=== PATIENT | male | born 1950 | race Caucasian/White ===

== ENCOUNTER → 2019-08-07 | Outpatient (CLI) | payer MEDICARE, BC ==
[~2019-08-07] MED LIST: ACYC400 PO; ASPI81CH PO; ATOR80 PO; FOSI10 PO; LOSA50 PO; NEBI10 PO; NITR.4SL SL; Norvasc5 MG PO; PANT40; SERT25 PO; TICA90TA PO
[2019-08-07 16:47] LABS: Influenza A Negative (NEGATIVE); Influenza B Negative (NEGATIVE)
== END ==
LOC: LAB SHORT 15:48 → LAB 15:48
PROVIDERS: Nurse Practitioner Family
DX: R05 Cough (principal)
CPT/HCPCS: 87804

== ENCOUNTER 2019-09-16 07:52 | Emergency (ER) | payer MEDICARE, BC, OTHER ==
[~2019-09-16] VITALS: Ht 172.7 cm; Wt 79.4 kg
[2019-09-16] MEDS ORDERED: Bystolic2.5 MG PO (09:44)
[2019-09-16] MEDS ORDERED: Flovent 110 MCG12 GM INH (09:44)
[2019-09-16] MEDS ORDERED: MONTELUKAST SOD10 M2 PO (09:45)
[2019-09-16] MEDS ORDERED: OMEP20ER PO (09:45)
[2019-09-16] MEDS ORDERED: TAMSULOSIN HCL0.4 M1 PO (09:46)
[2019-09-16] MEDS ORDERED: Ventolin/Prove6.7 GM (09:47)
[2019-09-16] MEDS ORDERED: VIRTUSSIN AC L118 ML UD (09:51)
[2019-09-16] MEDS ORDERED: PRED20 PO (09:51)
[2019-09-16] MEDS ORDERED: Tessalon200 MG (09:51)
[2019-09-16 09:56] LABS: BASOPHILS ABSOLUTE AUTO 0.03 K/mm3 (0.00-0.23); BASOPHILS PERCENT AUTO 1 % (0-2); EOSINOPHILS ABSOLUTE AUTO 0.09 K/mm3 (0.00-0.68); EOSINOPHILS PERCENT AUTO 2 % (0-6); Hematocrit 41.3 % (37.0-53.0); Hemoglobin 13.5 g/dL (13.5-17.5); IMMATURE GRAN ABSOLUTE AUTO 0.02 K/mm3 (0.00-0.10); IMMATURE GRAN PERCENT AUTO 0 % (0-1); LYMPHOCYTES ABSOLUTE AUTO 0.85 K/mm3 (0.84-5.20); LYMPHOCYTES PERCENT AUTO 15 % (21-46); MONOCYTES ABSOLUTE AUTO 0.44 K/mm3 (0.16-1.47); MONOCYTES PERCENT AUTO 8 % (4-13); Mean Corpuscular HGB 31.4 pg (26.0-34.0); Mean Corpuscular HGB Conc 32.7 g/dL (31.5-36.5); Mean Corpuscular Volume 96 fL (80-100); NEUTROPHILS PERCENT AUTO 75 % (41-73); Platelet Count 143 K/mm3 (150-400); RDW Coefficient Variation 13.3 % (11.7-14.2); RDW Standard Deviation 47.2 fL (35.1-46.3); White Blood Cell Count 5.73 K/mm3 (4.00-11.30)
[2019-09-16 10:16] LABS: Alanine Aminotransfer (ALT/SGP 29 U/L (12-78); Albumin, Blood 3.7 g/dL (3.4-5.0); Albumin/Globulin Ratio 1.5 (0.8-1.8); Alk Phos 68 U/L (50-136); Anion Gap 2 mmol/L (6-16); Aspartate Aminotrans (AST/SGOT 17 U/L (12-37); Bilirubin, Total 0.7 mg/dL (0.1-1.0); Blood Urea Nitrogen 8 mg/dL (8-24); Bun/Creatinine Ratio 10.9 (12.0-20.0); CO2, Blood 30 mmol/L (21-32); Calcium, Blood 8.5 mg/dL (8.5-10.1); Chloride, Blood 113 mmol/L (98-108); Creatinine, Blood 0.73 mg/dL (0.60-1.20); Globulin, Blood 2.4 g/dL (2.2-4.0); Glomerular Filtration Rate >60 (60-); Glucose, Blood 79 mg/dL (70-99); Sodium, Blood 145 mmol/L (136-145); Total Protein, Blood 6.1 g/dL (6.4-8.2)
[2019-09-16 10:18] LABS: International Normalized Ratio 1.22; Prothrombin Time Results 12.9 Sec (9.7-11.5)
[2019-09-16] MEDS ORDERED: BENZ100A PO (10:58)
[2019-09-16] MEDS ORDERED: Zithromax250 MG PO (10:58)
== END 2019-09-16 11:16 | disposition home or self-care (01) ==
LOC: ER 07:52
PROVIDERS: Emergency Medicine
DX: J18.9 Pneumonia, unspecified organism (principal); Z87.891 Personal history of nicotine dependence
CPT/HCPCS: 36415; 71045; 80053; 84145; 85025; 85610; 85730; 99283-25